=== PATIENT | male | born 1970 | race Asian ===

== ENCOUNTER 2021-05-25 10:54 | Emergency (ER) | payer BC, OTHER ==
[~2021-05-25] VITALS: Ht 177.8 cm; Wt 93.0 kg
[2021-05-25 11:52] VITALS: BP 140/88
[2021-05-25] MEDS ORDERED: triamcinolone acetonide 40mg/ml inj IJ ONE (12:00)
[2021-05-25] MEDS ORDERED: LIDOcaine 1% W/epiNEPHrine 1:200,000 10ml vial IJ ONE (12:05)
[2021-05-25] MEDS ORDERED: LIDOcaine 1% w/epiNEPHrine 1:200,000 30ml vial IJ ONE (12:05)
[2021-05-25] MEDS ORDERED: PRED20TA PO (12:27)
== END 2021-05-25 12:46 | disposition home or self-care (01) ==
LOC: ER 10:55
DX: M25.562 Pain in left knee (principal); M25.462 Effusion, left knee
CPT/HCPCS: 20610; 99284; J3301

== ENCOUNTER 2021-05-30 09:45 | Emergency (ER) | payer OTHER, BC ==
[~2021-05-30] VITALS: Ht 180.3 cm; Wt 93.2 kg
[~2021-05-30 09:45] MED LIST: PRED20TA PO
[2021-05-30 10:06] VITALS: BP 144/104
[2021-05-30] MEDS ORDERED: HYDR-3965 PO (13:34)
== END 2021-05-30 13:44 | disposition home or self-care (01) ==
LOC: ER 09:46
DX: M25.562 Pain in left knee (principal); G89.29 Other chronic pain; Z98.890 Other specified postprocedural states; Z79.899 Other long term (current) drug therapy
CPT/HCPCS: 29505; 73564; 99283